=== PATIENT | female | born 1985 | race African-American/Black ===

== ENCOUNTER 2017-04-23 10:32 | Emergency (ER) | payer OTHER ==
[~2017-04-23] VITALS: Ht 157.5 cm; Wt 85.9 kg
[~2017-04-23 10:32] MED LIST: LORTA5 PO; METR-1 PO; SULF-154 PO
[2017-04-23 10:40] VITALS: BP 164/77; PULSE 102; RESP 16; TEMP 98.7; O2SAT 98
[2017-04-23] MEDS ORDERED: ACYC200C66 PO (10:52)
--- NOTE | 2017-04-23 11:53 | PD ---
HPI Chief Complaint: Headache Time Seen by Provider: 11:46 Travel History International Travel<30 days: No Contact w/Intl Traveler<30days: No Traveled to known affect area: No History of Present Illness HPI 32-year-old female patient presents to the ER today with one-week history of headaches which wax and wane, started while she was on the sulfa and slowly has been progressing. She has been seen by her primary care physician last week and had been tested with blood work and thyroid studies and it was essentially unremarkable. She states that she is here today because she was at work and just felt weak and tremulous. She denies any fevers, stiff neck, vomiting, or any other symptoms. She states that it is getting in the way with her work and daily life, states that the current headache is a 7 out of 10. She does not know of any exacerbating or alleviating factors. Modifying Factors: None Associated Signs & Symptoms: Headache for 1 week Risk Factors: None PFSH Past Medical History Anemia: Yes Diabetes: Yes (diet controlled) Patient Takes Glucophage: No Medical other: Yes (GENITAL HERPES) Immunizations Current: Yes ?: Not LMP: 12/15, STATES BC Menopausal: No : 4 Para: 2 Miscarriage: 1 : 0 Past Surgical History Oral Surgery: Yes Social History Alcohol Use: No Tobacco Use: No Substance Use: No Allergies-Medications (Allergen,Severity, Reaction): Coded Allergies: cephalexin (Unverified Allergy, Severe, SOB, HIVES, 04/23/17) tramadol (Unverified Allergy, Unknown, hives and shob, 04/23/17) penicillin G (Unverified Adverse Reaction, Severe, Itching, 04/23/17) Reported Meds & Prescriptions Reported Meds & Active Scripts Active Reported Acyclovir 200 Mg Cap Unknown Dose PO 5 TIMES A DAY Review of Systems Except as stated in HPI: all other systems reviewed are Neg Physical Exam Narrative GENERAL: Well-developed young -[place] female patient currently in mild distress. Awake and oriented 3. SKIN: Focused skin assessment warm/dry. HEAD: Atraumatic. Normocephalic. EYES: Pupils equal and round. No scleral icterus. No injection or drainage. ENT: No nasal bleeding or discharge. Mucous membranes pink and moist. NECK: Trachea midline. No JVD. Supple. CARDIOVASCULAR: Regular rate and rhythm. No murmur appreciated. RESPIRATORY: No accessory muscle use. Clear to auscultation. Breath sounds equal bilaterally. GASTROINTESTINAL: Abdomen soft, non-tender, nondistended. Hepatic and splenic margins not palpable. MUSCULOSKELETAL: No obvious deformities. No clubbing. No cyanosis. No edema. NEUROLOGICAL: Awake and alert. No obvious cranial nerve deficits. Motor grossly within normal limits. Normal speech. PSYCHIATRIC: Appropriate mood and affect; insight and judgment normal. Data Data Last Documented VS Vital Signs Date Time Temp Pulse Resp B/P (MAP) Pulse Ox O2 Delivery O2 Flow Rate FiO2 04/23/17 12:02 96 04/23/17 10:40 98.7 102 16 164/77 (106) Orders Orders Ct Brain W/O Iv Contrast(Rout) (04/23/17 11:46) Ecg Monitoring (04/23/17 11:46) Oximetry (04/23/17 11:46) Ed Urine Pregnancytest Poc (04/23/17 11:46) Promethazine (Phenergan) (04/23/17 12:00) Ibuprofen (Motrin) (04/23/17 12:00) Ed Discharge Order (04/23/17 12:33) [facility] Medical Decision Making Medical Screen Exam Complete: Yes Emergency Medical Condition: Yes Medical Record Reviewed: Yes Differential Diagnosis Headache: Migraine headaches versus tension headaches versus ICH Narrative Course Patient has had complete lab workup done by her primary care doctor before, and I have offered to do further lab work but she is declining at this point stating that it was fine last week. A CAT scan was done which did not show any signs of acute intracranial processes. Patient has no focal neurological deficits currently. Headache symptoms did not sound like a thunderclap headache , she has no meningeal signs, she is afebrile, at this point I have discussed the risks and benefits of doing an LP but I do not think that this is warranted in this case and the patient agrees. My plan would be to have her continue symptomatic relief for headaches and follow-up with primary care doctor. Return for worsening in symptoms as needed. The plan has been discussed with her and she states understanding. Diagnosis Primary Impression: Head pain cephalgia Med/Other Pt SpecificInfo: Prescription(s) given Scripts Metoclopramide (Reglan) 10 Mg Tab 10 MG PO QID Y for HEADACHE, #15 TAB 0 Refills Prov: Soontharothai,Rewadee MD 04/23/17 Disposition: 01 DISCHARGE HOME Condition: Stable Joe Machado MD Apr 23, 2017 11:53
[2017-04-23] MEDS ORDERED: IBUPROFEN 600 MG TAB PO ONE (12:00)
[2017-04-23] MEDS ORDERED: PROMETHAZINE HCL 25 MG TAB PO ONE (12:00)
[2017-04-23 12:02] VITALS: O2SAT 96
--- NOTE | 2017-04-23 12:22 | RADRPT ---
EXAM DATE/TIME: 04/23/2017 12:11 [facility] COMPARISON: No previous studies available for comparison. INDICATIONS : Cephalgia x 1 week. RADIATION DOSE: 65.40 CTDIvol (mGy) MEDICAL HISTORY : Diabetes mellitus type 2. SURGICAL HISTORY : None. ENCOUNTER: Initial ACUITY: 1 week PAIN SCALE: 7/10 LOCATION: cranial TECHNIQUE: Multiple contiguous axial images were obtained of the head. Using automated exposure control and adj ustment of the mA and/or kV according to patient size, radiation dose was kept as low as reasonably a chievable to obtain optimal diagnostic quality images. DICOM format image data is available electro nically for review and comparison. FINDINGS: CEREBRUM: The ventricles are normal for age. No evidence of midline shift, mass lesion, hemorrhage or acute in farction. No extra-axial fluid collections are seen. POSTERIOR FOSSA: The cerebellum and brainstem are intact. The 4th ventricle is midline. The cerebellopontine angle i s unremarkable. EXTRACRANIAL: The visualized portion of the orbits is intact. SKULL: The calvaria is intact. No evidence of skull fracture. CONCLUSION: Normal examination. Moises Parson Jr., MD on April 23, 2017 at 12:19 Board Certified Radiologist. This report was verified electronically.
[2017-04-23] MEDS ORDERED: REGL10TA5 PO (12:36)
== END 2017-04-23 12:44 | disposition home or self-care (01) ==
LOC: PHED 10:32
DX: R51 Headache (principal); E11.9 Type 2 diabetes mellitus without complications
CPT/HCPCS: 70450; 84703; 99283; Q0169